=== PATIENT | female | born 1950 | race Caucasian/White ===

== ENCOUNTER → 2017-04-05 | Outpatient (CLI) | payer OTHER ==
[~2017-04-05] MED LIST: FAMO10TA71; LNS30CCR; NORE1TAB6; TRIA16.5; vitamine D
--- NOTE | 2017-04-07 09:37 | Diagnostic Imaging Report ---
EXAMINATION: Bilateral screening mammogram 2D views with tomosynthesis. The current study was also evaluated with a Computer Aided Detection (CAD) system. INDICATION: Screening. PERSONAL HISTORY: No current complaints stated on the questionnaire. COMPARISON: 04/03/2016. FINDINGS: The breasts are composed of heterogeneously dense parenchyma which may decrease mammographic sensitivity. Allowing for technique and positional differences, no suspicious change is seen. IMPRESSION: Dense breasts with no definite change. ACR BI-RADS Category 2: Benign findings. Result letter will be mailed to the patient. Note: At least 10% of breast cancer is not imaged by mammography. Dictated by: Dictated on workstation # [id number]
== END ==
LOC: RAD 11:01
PROVIDERS: ATTEND Obstetrics & Gynecology
DX: Z12.31 Encounter for screening mammogram for malignant neoplasm of breast (principal)
CPT/HCPCS: 77067

== ENCOUNTER → 2018-04-13 | Outpatient (CLI) | payer MEDICARE, OTHER ==
--- NOTE | 2018-04-13 14:05 | Diagnostic Imaging Report ---
Indication: Routine screening. Comparison is made with prior mammograms from 04/05/2017 and 03/31/2016. 2-D and 3-D bilateral screening mammography was performed with CAD. Both breasts remain heterogeneously dense, limiting the sensitivity of mammography. The overall parenchymal pattern is stable. No dominant mass or malignant appearing microcalcifications are seen. The axillae are unremarkable. Impression: BI-RADS category 1. No mammographic features suspicious for malignancy are identified. Dictated by: Dictated on workstation # [id number]
== END ==
LOC: RAD 09:35
PROVIDERS: ATTEND Obstetrics & Gynecology
DX: Z12.31 Encounter for screening mammogram for malignant neoplasm of breast (principal)
CPT/HCPCS: 77067

== ENCOUNTER → 2018-09-06 | Outpatient (CLI) | payer MEDICARE, OTHER ==
--- NOTE | 2018-09-06 11:45 | Diagnostic Imaging Report ---
INDICATION: Screening for osteoporosis. COMPARISON: None. FINDINGS: There are no prior studies available for comparison. The bone mineral density of the hips and spine was measured. The T score for the spine and the total T score for the left hip is -1.4. The T score for the left femoral neck is -1.3 and for the right femoral neck -1.1. All of these values fall within the range of osteopenia. The total T score for the right hip however is -1.0. This is at the lowest end of normal. AP Spine L1-L4: [BMD (g/cm2): 1.028] [T-Score: -1.4] [Z-Score: 0.2] [BMD Previous: N/A] [BMD % Change: N/A] LT Hip Neck: [BMD (g/cm2): 0.860] [T-Score: -1.3] [Z-Score: 0.2] LT Hip Total: [BMD (g/cm2):0.829] [T-Score:-1.4] [Z-Score: -0.2] [BMD Previous: N/A] [BMD % Change: N/A] RT Hip Neck: [BMD (g/cm2):0.888] [T-Score:-1.1] [Z-Score:0.4] RT Hip Total: [BMD (g/cm2):0.879] [T-score:-1.0] [Z-Score:0.2] [BMD Previous:N/A] [BMD % Change:N/A] *Indicates significant change from prior examination based on 95% confidence level. World Health Organization criteria for BMD interpretation classify patients as Normal (T-score at or above -1.0), Osteopenic (T-score between -1.0 and -2.5) or Osteoporotic (T-score at or below -2.5). LIMITATIONS AND MODIFICATION: None. FRACTURE RISK (FRAX SCORE): The ten year probability of (%): Major Osteoporotic Fracture: [8.7] Hip Fracture: [0.8] IMPRESSION: 1. There is osteopenia of the spine, the left hip and both femoral necks. The total bone mineral density of the right hip is at the lowest end of normal. 2. See below National Osteoporosis Foundation guidelines on when to potentially initiate pharmacologic therapy. Based on the National Osteoporosis Foundation Guidelines, pharmacologic treatment should be initiated in any of the following, unless clinical conditions suggest otherwise: * Any patient with prior fragility fracture of the hip or vertebrae. A spine fracture indicates 5X risk for subsequent spine fracture and 2X risk for subsequent hip fracture. * Osteoporosis (T-score <-2.5). * Postmenopausal women and men age 50 and older with low bone mass/osteopenia (T-score between -1.0 and -2.5) by DXA and 10-year major osteoporotic fracture greater than 20% or a 10-year probability of hip fracture greater than 3%. These fracture risks are supplied above in the FRAX score, if applicable. * Clinician judgement and/or patient preferences may indicate treatment for people with 10-year fracture probabilities above or below these levels. Dictated by: Dictated on workstation # [id number]
== END ==
LOC: RAD 10:28
PROVIDERS: ATTEND Internal Medicine
DX: Z13.820 Encounter for screening for osteoporosis (principal); M85.89 Other specified disorders of bone density and structure, multiple sites; M81.0 Age-related osteoporosis without current pathological fracture; M40.299 Other kyphosis, site unspecified
CPT/HCPCS: 77080

== ENCOUNTER → 2018-12-14 | Outpatient (CLI) | payer MEDICARE, OTHER ==
--- NOTE | 2018-12-14 18:55 | Diagnostic Imaging Report ---
INDICATION: Fullness in the lateral left breast. Study is performed for further evaluation. COMPARISON: Correlation is made with prior mammograms from 04/13/2018 and 04/05/2017. EXAMINATION: Unilateral left 2D and 3D diagnostic mammography was performed with CAD. This included conventional CC, MLO and ML as well as exaggerated CC views. FINDINGS: Scattered fibroglandular densities in the left breast are noted. No dominant mass or malignant appearing microcalcifications are seen. Left axilla is unremarkable. IMPRESSION: No suspicious mammographic abnormality is seen. Even so, directed sonographic interrogation of the area of palpable fullness in the lateral left breast is recommended and will be performed today. ACR BI-RADS Category 0: Incomplete. (Needs additional imaging evaluation). Result letter will be mailed to the patient. Note: At least 10% of breast cancer is not imaged by mammography. Dictated by: Dictated on workstation # [id number]
--- NOTE | 2018-12-14 19:04 | Diagnostic Imaging Report ---
INDICATION: Palpable fullness in the lateral left breast. EXAMINATION: Sonographic interrogation of the area of fullness in the outer left breast was performed. FINDINGS: No sonographic abnormality is seen. No solid or cystic mass is detected. IMPRESSION: No sonographic abnormality is seen. Continued clinical and self breast exam is recommended to confirm stability of the area of palpable fullness. Dictated by: Dictated on workstation # [id number]
== END ==
LOC: RAD 13:28
PROVIDERS: ATTEND Obstetrics & Gynecology
DX: N63.20 Unspecified lump in the left breast, unspecified quadrant (principal)
CPT/HCPCS: 76642

== ENCOUNTER → 2019-04-17 | Outpatient (CLI) | payer MEDICARE, OTHER ==
--- NOTE | 2019-04-17 12:23 | Diagnostic Imaging Report ---
INDICATION: Routine screening. COMPARISON: 04/13/2018 and 04/05/2017. TECHNIQUE: 2D and 3D bilateral screening mammography was performed with CAD. FINDINGS: Both breasts are heterogeneously dense, limiting the sensitivity of mammography. No mass or malignant appearing microcalcifications are seen. The axillae are unremarkable. IMPRESSION: No mammographic features suspicious for malignancy are identified. ACR BI-RADS Category 1: Negative. Result letter will be mailed to the patient. Note: At least 10% of breast cancer is not imaged by mammography. Dictated by: Dictated on workstation # [id number]
== END ==
LOC: RAD 11:18
PROVIDERS: ATTEND Obstetrics & Gynecology
DX: Z12.31 Encounter for screening mammogram for malignant neoplasm of breast (principal)
CPT/HCPCS: 77067

== ENCOUNTER → 2020-04-22 | Outpatient (CLI) | payer MEDICARE, OTHER ==
--- NOTE | 2020-04-22 12:43 | Diagnostic Imaging Report ---
INDICATION: Routine screening. COMPARISON: 04/17/2019 and 04/13/2018. TECHNIQUE: 2D and 3D bilateral screening mammography was performed with CAD. FINDINGS: Both breasts are heterogeneously dense, limiting the sensitivity of mammography. The parenchymal pattern is stable. No mass or malignant appearing microcalcifications are seen. The axillae are unremarkable. IMPRESSION: No mammographic features suspicious for malignancy are identified. ACR BI-RADS Category 1: Negative. Result letter will be mailed to the patient. Note: At least 10% of breast cancer is not imaged by mammography. Dictated by: Dictated on workstation # [id number]
== END ==
LOC: RAD 10:33
PROVIDERS: ATTEND Obstetrics & Gynecology
DX: Z12.31 Encounter for screening mammogram for malignant neoplasm of breast (principal)
CPT/HCPCS: 77063; 77067

== ENCOUNTER → 2020-10-22 | Outpatient (CLI) | payer MEDICARE, OTHER ==
--- NOTE | 2020-10-22 09:59 | Diagnostic Imaging Report ---
INDICATION: Screening for osteoporosis. COMPARISON: 09/06/2018 FINDINGS: The bone mineral density of the spine and the hips and femoral necks was measured. The study was compared to the prior exam of 09/06/2018. The total T score for the spine is -1.9. On the prior exam, the T score is -1.4. The total T score for the left hip is -1.4 and for the right hip -0.9. On the prior study the respective T-scores are -1.4 and -1.0. The T score for the left femoral neck is -1.4 and for the right -0.9. On the prior exam the respective T scores were -1.3 and -1.1. IMPRESSION: 1. There are mixed results. There has been slight decrease in the bone mineral density in the spine but the T score value remains within the range of osteopenia. Conversely there has been a slight increase in the bone mineral density of the right hip and right femoral neck and this T score value is now at the lower end of normal. The left hip and left femoral neck are essentially no different and the T-scores for the left hip and femoral neck do indicate osteopenia. AP Spine L1-L4: [BMD (g/cm2): 0.973] [T-Score: -1.9] [Z-Score: -0.2] [BMD Previous: 1.028] [BMD % Change: -5.4] LT Hip Neck: [BMD (g/cm2): 0.843] [T-Score: -1.4] [Z-Score: 0.2] LT Hip Total: [BMD (g/cm2):0.836] [T-Score:-1.4] [Z-Score: 0.0] [BMD Previous: 0.829] [BMD % Change: 0.8] RT Hip Neck: [BMD (g/cm2):0.908] [T-Score:-0.9] [Z-Score:0.7] RT Hip Total: [BMD (g/cm2):0.892] [T-score:-0.9] [Z-Score:0.5] [BMD Previous:0.879] [BMD % Change:1.5] *Indicates significant change from prior examination based on 95% confidence level. World Health Organization criteria for BMD interpretation classify patients as Normal (T-score at or above -1.0), Osteopenic (T-score between -1.0 and -2.5) or Osteoporotic (T-score at or below -2.5). LIMITATIONS AND MODIFICATION: None. FRACTURE RISK (FRAX SCORE): The ten year probability of (%): Major Osteoporotic Fracture: [9.4] Hip Fracture: [1.1] IMPRESSION: 1. 2. 3. See below National Osteoporosis Foundation guidelines on when to potentially initiate pharmacologic therapy. Based on the National Osteoporosis Foundation Guidelines, pharmacologic treatment should be initiated in any of the following, unless clinical conditions suggest otherwise: * Any patient with prior fragility fracture of the hip or vertebrae. A spine fracture indicates 5X risk for subsequent spine fracture and 2X risk for subsequent hip fracture. * Osteoporosis (T-score <-2.5). * Postmenopausal women and men age 50 and older with low bone mass/osteopenia (T-score between -1.0 and -2.5) by DXA and 10-year major osteoporotic fracture greater than 20% or a 10-year probability of hip fracture greater than 3%. These fracture risks are supplied above in the FRAX score, if applicable. * Clinician judgement and/or patient preferences may indicate treatment for people with 10-year fracture probabilities above or below these levels. Dictated by: Dictated on workstation # [id number]
== END ==
LOC: RAD 08:30
PROVIDERS: ATTEND Internal Medicine
DX: Z13.820 Encounter for screening for osteoporosis (principal)
CPT/HCPCS: 77080

== ENCOUNTER → 2021-05-06 | Outpatient (CLI) | payer MEDICARE, OTHER ==
--- NOTE | 2021-05-06 13:19 | Diagnostic Imaging Report ---
INDICATION: Routine screening Comparison is made with prior mammogram 04/22/2020 and 05/05/2019. 2-D and 3-D bilateral screening mammography was performed with CAD. Both breasts are heterogeneously dense, limiting the sensitivity of mammography. The parenchymal pattern is stable. No dominant mass or malignant-appearing microcalcifications are seen. Axillae are unremarkable. IMPRESSION: No mammographic features suspicious for malignancy are identified. BI-RADS Category 1 ACR BI-RADS Category 1: Negative. Result letter will be mailed to the patient. Note: At least 10% of breast cancer is not imaged by mammography. Dictated by: Dictated on workstation # [id number]
== END ==
LOC: RAD 09:30
PROVIDERS: ATTEND Obstetrics & Gynecology
DX: Z12.31 Encounter for screening mammogram for malignant neoplasm of breast (principal)
CPT/HCPCS: 77063; 77067

== ENCOUNTER → 2022-06-23 | Outpatient (CLI) | payer MEDICARE, OTHER ==
--- NOTE | 2022-06-23 16:14 | Diagnostic Imaging Report ---
INDICATION: Routine screening. Comparison is made prior mammogram of 05/06/2021 and 04/22/2020. 2-D and 3-D bilateral screening mammography was performed with CAD. Both breasts are heterogeneously dense, limiting the sensitivity of mammography. The parenchymal pattern is stable. No new mass or malignant-appearing microcalcifications are seen. Axillae are unremarkable. IMPRESSION: No mammographic features suspicious for malignancy are identified. ACR BI-RADS Category 1: Negative. Result letter will be mailed to the patient. Note: At least 10% of breast cancer is not imaged by mammography. BI-RADS Category 1 Dictated by: Dictated on workstation # [id number]
== END ==
LOC: RAD 10:16
PROVIDERS: ATTEND Internal Medicine
DX: Z12.31 Encounter for screening mammogram for malignant neoplasm of breast (principal)
CPT/HCPCS: 77063; 77067